=== PATIENT | male | born 1955 | race Caucasian/White ===

== ENCOUNTER 2018-09-21 09:32 | Day surgery (SDC) | payer MEDICARE, BC ==
[~2018-09-21 09:32] MED LIST: Ginkgo Biloba120 MG PO; IBUP400 PO; OMEP20ER PO; WITHAZ50T TOP
--- NOTE | 2018-09-21 09:43 | NUR ---
ADMITTED TO UNIT PATIENT STATES WAS AWAKE DURING LAST PROCEDURE AND COULD FEEL SCOPE GOING AROUND AND WOULD LIKE TO BE MORE ASLEEP THIS TIME.
--- NOTE | 2018-09-21 11:17 | NUR ---
09/21/18 1117 [facility] History, Chart, Medications and Allergies reviewed before start of procedure.PATIENT DETERMINED TO BE ASA APPROPRIATE FOR PROPOFOL SEDATION PRIOR TO START OF PROCEDURE BY .MONITOR INTACT WITH CONTINUOUS PULSE OXIMETRY AND INTERMITTENT BP.3-LEAD EKG REVIEWED WITH PHYSICIAN PRIOR TO START OF PROCEDURE.O2 VIA N/C INTACT THROUGHOUT SEDATION/PROCEDURE.
--- NOTE | 2018-09-21 13:34 | NUR ---
"DAY SURGERY RN | DISCHARGE This RN was not able to chart earlier d/t computer issues. Patient was stable at discharge. No issues. Denies pain and nausea. Patient family at bedside to hear discharge instructions. Patient taken out in wheel chair by volunteer to front entrance for ride home."
== END 2018-09-21 23:24 | disposition home or self-care (01) ==
LOC: ORSCMMR 09:32 → ORD 10:30 → ORSCMMR 23:24
PROVIDERS: Internal Medicine Gastroenterology
PROC: 0DBN8ZX Excision of Sigmoid Colon, Via Natural or Artificial Opening Endoscopic, Diagnostic (ICD-10-PCS; principal; 2018-09-21 10:30)
PROC: 0DBK8ZX Excision of Ascending Colon, Via Natural or Artificial Opening Endoscopic, Diagnostic (ICD-10-PCS; principal; 2018-09-21 10:30)
PROC: 0DBL8ZX Excision of Transverse Colon, Via Natural or Artificial Opening Endoscopic, Diagnostic (ICD-10-PCS; principal; 2018-09-21 10:30)
DX: Z12.11 Encounter for screening for malignant neoplasm of colon (principal); D12.5 Benign neoplasm of sigmoid colon; D12.3 Benign neoplasm of transverse colon; D12.2 Benign neoplasm of ascending colon; Z86.010 Personal history of colon polyps; E03.9 Hypothyroidism, unspecified; K64.8 Other hemorrhoids; Z79.899 Other long term (current) drug therapy
CPT/HCPCS: 88305; J2250; J2704; J7120

== ENCOUNTER 2024-04-14 11:23 | Day surgery (SDC) | payer BC ==
[~2024-04-14] VITALS: Ht 182.9 cm; Wt 91.7 kg
[~2024-04-14 11:23] MED LIST changes: +Balanced Salt Epinephrine Irrigation Solution 500 mL IR SCH; +LEVSOD25 PO; +Lidocaine HCl/Pf 1% 5 ML VIAL XX SCH; +MELO7.5 PO; +Moxifloxacin HCL 0.5 MG/0.1 ML 0.4MLSYR LEFTEYE SCH; +NS 500 ML IV ONE; +PHENYLEPHRINE\\TROPICAMIDE\\TETRACAINE OPHTHALMIC DILATING SOLN LEFTEYE PRN; +Povidone-Iodine 450 DROP/30 ML Solution LEFTEYE SCH; +Povidone-Iodine 450 DROP/30 ML Solution ONE; +Tetracaine HCl/Pf 0.5% Opth Soln 4 ml ONE; +Triamcinolone Inj Susp 40 MG / ML 1ML Vial INJ SCH; +Triamcinolone Inj Susp 40 MG / ML 1ML Vial ONE
[2024-04-14] MEDS ORDERED: NS 500 ML IV ONE (11:57)
[2024-04-14] MEDS ORDERED: Midazolam HCl 1MG / ML 2ML Vial ONE (12:04)
[2024-04-14] MEDS ORDERED: FentaNYL Citrate 50 MCG/ML 2 ML Injection ONE (12:17)
[2024-04-14 12:45] VITALS: BP 158/91
== END 2024-04-14 12:59 | disposition home or self-care (01) ==
LOC: ORSCSDS 11:23
PROVIDERS: Ophthalmology
PROC: 08RK3JZ Replacement of Left Lens with Synthetic Substitute, Percutaneous Approach (ICD-10-PCS; principal; 2024-04-14 13:00)
DX: H25.812 Combined forms of age-related cataract, left eye (principal); E03.9 Hypothyroidism, unspecified; Z79.899 Other long term (current) drug therapy
CPT/HCPCS: J2250; J3010; J3301; J7040; V2632